=== PATIENT | female | born 1975 ===

== ENCOUNTER 2022-03-22 06:00 | Emergency (ER) | payer SELFPAY ==
--- NOTE | 2022-03-22 06:49 | XRay Report ---
LEFT SHOULDER 3 VIEW(S) INDICATION / CLINICAL INFORMATION: FALL. COMPARISON: None available. FINDINGS: Acute minimally displaced fracture of the greater tuberosity is demonstrated. Left shoulder and left chest otherwise are unremarkable. IMPRESSION: 1. Acute minimally displaced fracture of the left greater tuberosity. Signer Name: Sarwat Cox II, MD Signed: 03/22/2022 6:45 AM Workstation Name: [id number]
--- NOTE | 2022-03-22 06:49 | XRay Report ---
LEFT XR humerus 2+V LT INDICATION / CLINICAL INFORMATION: fall COMPARISON: None available. TECHNIQUE: AP and lateral views of the left humerus were acquired. FINDINGS: Nondisplaced fracture involving the greater humeral tuberosity is demonstrated. IMPRESSION: 1. Fracture of the left humerus involving the greater tuberosity. Signer Name: Sarwat Cox II, MD Signed: 03/22/2022 6:44 AM Workstation Name: [id number]
--- NOTE | 2022-03-22 09:00 | Emergency Department Report ---
ED Fall HPI - General Chief Complaint: Extremity Injury, Upper Stated Complaint: LEFT SHOULDER PAIN Source: patient Mode of arrival: Ambulatory Limitations: No Limitations - History of Present Illness Initial Comments: 46-year-old female presents to the ED complaining left shoulder pain and left forearm pain. Patient states that she was cleaning her bathtub when she slipped and fell. It is painful to move her left shoulder and left arm without pain. States the pain is a 8 out of 10. She has no obvious deformity noted no distracting injury noted . No edema noted . the patient is holding her left shoulder against her body. She denies any numbness and tingling at present time. Patient is alert and oriented x3. No acute distress noted no ill appearance noted. No Discoloration noted to the lower extremity. 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 Witnessed: no Place Fall Occurred: home Loss of Consciousness: none Prolonged Down Time?: no Symptoms Prior to Fall: none Location - Extremities: Left: Shoulder, Arm Severity: moderate Severity scale (0 -10): 8 Quality: dull, stabbing Context: tripped/slipped Associated Symptoms: denies - Related Data Previous Rx's Medication Instructions Recorded Last Taken Type Oxycodone HCl/Acetaminophen 1 each PO Q6HR PRN 3 Days #12 tab 03/22/22 Unknown Rx [Percocet 10/325 mg] Allergies Allergy/AdvReac Type Severity Reaction Status Date / Time amoxicillin Allergy Unknown Verified 03/22/22 06:08 lisinopril Allergy Unknown Verified 03/22/22 06:08 Sulfa (Sulfonamide Allergy Unknown Verified 03/22/22 06:08 Antibiotics) ED Review of Systems ROS: Stated complaint: LEFT SHOULDER PAIN Other details as noted in HPI Constitutional: denies: chills, fever Eyes: denies: eye pain, eye discharge, vision change ENT: denies: ear pain, throat pain Respiratory: denies: cough, shortness of breath, wheezing Cardiovascular: denies: chest pain, palpitations Endocrine: no symptoms reported Gastrointestinal: denies: abdominal pain, nausea, diarrhea Genitourinary: denies: urgency, dysuria, discharge Musculoskeletal: other (left shoulder ). denies: back pain, joint swelling, arthralgia Skin: denies: rash, lesions Neurological: denies: headache, weakness, paresthesias Psychiatric: denies: anxiety, depression Hematological/Lymphatic: denies: easy bleeding, easy bruising ED Past Medical Hx - Social History Smoking Status: Unknown if ever smoked Substance Use Type: None - Medications Home Medications: Home Medications Medication Instructions Recorded Confirmed Last Taken Type Oxycodone HCl/Acetaminophen 1 each PO Q6HR PRN 3 Days #12 tab 03/22/22 Unknown Rx [Percocet 10/325 mg] ED Physical Exam - General Limitations: No Limitations General appearance: alert, in no apparent distress - Head Head exam: Present: atraumatic, normocephalic - Eye Eye exam: Present: normal appearance - ENT ENT exam: Present: mucous membranes moist - Neck Neck exam: Present: normal inspection - Respiratory Respiratory exam: Present: normal lung sounds bilaterally. Absent: respiratory distress - Cardiovascular Cardiovascular Exam: Present: regular rate, normal rhythm. Absent: systolic murmur, diastolic murmur, rubs, gallop - GI/Abdominal GI/Abdominal exam: Present: soft, normal bowel sounds - Extremities Exam Extremities exam: Present: normal inspection - Back Exam Back exam: Present: normal inspection - Neurological Exam Neurological exam: Present: alert, oriented X3 - Psychiatric Psychiatric exam: Present: normal affect, normal mood - Skin Skin exam: Present: warm, dry, intact, normal color. Absent: rash ED Course Vital Signs 03/22/22 03/22/22 06:04 08:35 Temperature 97.7 F Pulse Rate 124 H Respiratory 18 Rate Blood Pressure 150/101 O2 Sat by Pulse 100 100 Oximetry ED Medical Decision Making - Radiology Data [facility], [place] [address] [place] [address] XRay Report Signed Patient: SARA BRUSH MR#: [id number] : 1975 Acct:[id number] Age/Sex: 46 / F ADM Date: 03/22/22 Loc: ED Attending Dr: Ordering Physician: SAMREEN BANKS MD Date of Service: 03/22/22 Procedure(s): XR shoulder 2+V LT Accession Number(s): [id number] cc: SAMREEN BANKS MD Fluoro Time In Minutes: LEFT SHOULDER 3 VIEW(S) INDICATION / CLINICAL INFORMATION: FALL. COMPARISON: None available. FINDINGS: Acute minimally displaced fracture of the greater tuberosity is demonstrated. Left shoulder and left chest otherwise are unremarkable. IMPRESSION: 1. Acute minimally displaced fracture of the left greater tuberosity. Signer Name: Mehul Deal II, MD Signed: 03/22/2022 6:45 AM Workstation Name: [id number] Transcribed By: ANA Dictated By: MEHUL DEAL II, MD Electronically Authenticated By: MEHUL DEAL II, MD Signed Date/Time: 03/22/22644 DD/ 3 TD/TT: [facility], [place] [address] [place] [address] XRay Report Signed Patient: SARA BRUSH MR#: [id number] : 1975 Acct:[id number] Age/Sex: 46 / F ADM Date: 03/22/22 Loc: ED Attending Dr: Ordering Physician: SAMREEN BANKS MD Date of Service: 03/22/22 Procedure(s): XR shoulder 2+V LT Accession Number(s): [id number] cc: ED MD DARREN Fluoro Time In Minutes: LEFT SHOULDER 3 VIEW(S) INDICATION / CLINICAL INFORMATION: FALL. COMPARISON: None available. FINDINGS: Acute minimally displaced fracture of the greater tuberosity is demonstrated. Left shoulder and left chest otherwise are unremarkable. IMPRESSION: 1. Acute minimally displaced fracture of the left greater tuberosity. Signer Name: Mehul Deal II, MD Signed: 03/22/2022 6:45 AM Workstation Name: [id number] Transcribed By: ANA Dictated By: MEHUL DEAL II, MD Electronically Authenticated By: MEHUL DEAL II, MD Signed Date/Time: 03/22/22644 DD/ 3 TD/TT: - Medical Decision Making 46-year-old female presents to the ED complaining left shoulder pain and left forearm pain. Patient states that she was cleaning her bathtub when she slipped and fell. It is painful to move her left shoulder and left arm without pain. States the pain is a 8 out of 10. She has no obvious deformity noted no distracting injury noted . No edema noted . the patient is holding her left shoulder against her body. She denies any numbness and tingling at present time. Patient is alert and oriented x3. No acute distress noted no ill appearance noted. No Discoloration noted to the lower extremity. Patient placed in a sling and swath. Toradol 30 mg given IM for pain Rechecked the patient is resting quietly quietly and comfortable and feeling better. I discussed the results of diagnostic study, my clinical impression and the plan for further treatment with the patient. Patient agrees with plan and discharge at this present time. All question addressed. I have given the patient instruction regarding a diagnosis ,expectation ,follow- up and return precaution. I explained to the patient that emergent condition may arise and to return to the ED for new worsen and any new persisting condition. I have explained the importance of following up with the primary care physician or referral physician listed below has instructed. The patient verbalized understanding of discharge instruction. Critical care attestation.: If time is entered above; I have spent that time in minutes in the direct care of this critically ill patient, excluding procedure time. ED Disposition Clinical Impression: Left humeral fracture Qualifiers: Encounter type: initial encounter Humerus Location: proximal Fracture type: closed Fracture alignment: nondisplaced Disposition: 01 HOME / SELF CARE / HOMELESS Is pt being admited?: No Does the pt Need Aspirin: No Condition: Stable Instructions: Humerus Fracture Treated With Immobilization, [id number] Additional Instructions: Take medication as prescribed Return to the ED for any worsening symptom Prescriptions: Oxycodone HCl/Acetaminophen [Percocet 10/325 mg] 1 each PO Q6HR PRN 3 Days #12 tab PRN Reason: Pain Referrals: SHOSHANA LAWRENCE MD [Staff Physician] - 3-5 Days Forms: Work/School Release Form(ED) Time of Disposition: 09:20
[2022-03-22 09:40] VITALS: BP 119/65
== END 2022-03-22 09:38 | disposition home or self-care (01) ==
LOC: ED 06:00
DX: S42.302A Unspecified fracture of shaft of humerus, left arm, initial encounter for closed fracture (principal); Z88.1 Allergy status to other antibiotic agents; Z91.09 Other allergy status, other than to drugs and biological substances; Z79.899 Other long term (current) drug therapy; W19.XXXA Unspecified fall, initial encounter; Y93.89 Activity, other specified; Y92.89 Other specified places as the place of occurrence of the external cause; Y99.8 Other external cause status
CPT/HCPCS: 99283